=== PATIENT | female | born 1990 | race Caucasian/White ===

== ENCOUNTER → 2019-05-15 | Outpatient (CLI) | payer OTHER ==
[~2019-05-15] MED LIST: ACETAMINOPHEN W1 TA6 PO; BIRTH CONTROL; MIRENA52 MG IU; MOTRIN 800800 MG/TAB PO; OMEPRAZOLE20 M2 PO; PHENERGAN 25 TA25 MG PO; REGLAN 10MG10 MG/TAB PO
[2019-05-15 13:50] LABS: BASO % 0.6 % (0.0-2.0); EOS # 0.1 (0.0-0.7); EOS % 1.1 % (0-4.0); GRAN % 55.2 % (42.2-75.2); HEMATOCRIT 43.2 % (37.0-47.0); HEMOGLOBIN 13.8 g/dl (12.5-16.0); LYMPH # 2.5 (1.2-3.4); LYMPH % 33.9 % (20.0-51.0); MEAN CELL VOLUME 84 fl (80.0-100.0); MEAN CORPUSCULAR HEMOGLOBIN 27 pg (27.0-31.0); MEAN CORPUSCULAR HGB CONC 32 g/dl (33.0-37.0); MEAN PLATELET VOLUME 11.6 fl (7.4-10.4); MONO # 0.6 (0.1-0.6); MONO % 8.9 % (1.7-9.3); PLATELET COUNT 258 K/mm3 (130-400); RED BLOOD COUNT 5.12 M/mm3 (4.10-5.30); REDCELL DISTRIBUTION WIDTH-CV 14.2 % (11.5-14.5)
[2019-05-15 14:34] LABS: ALBUMIN 4.4 gm/dL (3.5-5.0); BILIRUBIN,TOTAL 0.7 mg/dL (0.0-1.0); CALCIUM 9.4 mg/dL (8.4-10.2); CHOLESTEROL RISK RATIO 2.4; CREATININE, serum 0.82 (0.52-1.25); POTASSIUM 3.6 mmol/L (3.4-5.0); TOTAL PROTEIN 7.7 gm/dL (6.4-8.2)
[2019-05-15 15:04] LABS: THYROID STIMULATING HORMONE 0.605 uIU/mL (0.465-4.680)
== END ==
LOC: COL.LAB 12:46
PROVIDERS: Family Medicine
DX: E11.9 Type 2 diabetes mellitus without complications (principal); M32.9 Systemic lupus erythematosus, unspecified

== ENCOUNTER → 2019-05-23 | Outpatient (CLI) | payer OTHER | LOC: COL.CARD 08:00 | DX: R00.2 Palpitations (principal) ==

== ENCOUNTER → 2019-05-29 | Outpatient (CLI) | payer OTHER | LOC: ZCOL.LAB 16:40 | DX: R10.9 Unspecified abdominal pain (principal); R14.0 Abdominal distension (gaseous) ==

== ENCOUNTER → 2019-06-12 | Outpatient (CLI) | payer OTHER | LOC: COL.LAB 15:45 | DX: R10.9 Unspecified abdominal pain (principal); R14.0 Abdominal distension (gaseous) ==

== ENCOUNTER 2020-06-15 15:18 | Emergency (ER) | payer OTHER ==
[~2020-06-15] VITALS: Ht 165.1 cm; Wt 77.3 kg
[2020-06-15 15:54] VITALS: BP 122/83; TEMP 99
[2020-06-15] MEDS ORDERED: FLEXERIL 1010 MG/TAB PO (17:49)
[2020-06-15 18:01] VITALS: PULSE 81
== END 2020-06-15 18:04 | disposition home or self-care (01) ==
LOC: COL.ER 15:18
DX: S16.1XXA Strain of muscle, fascia and tendon at neck level, initial encounter (principal); M54.5 Low back pain; J45.909 Unspecified asthma, uncomplicated; K21.9 Gastro-esophageal reflux disease without esophagitis; Z88.2 Allergy status to sulfonamides; V49.40XA Driver injured in collision with unspecified motor vehicles in traffic accident, initial encounter
CPT/HCPCS: J1885

== ENCOUNTER → 2020-09-11 | Outpatient (CLI) | payer BC ==
[~2020-09-11] MED LIST changes: +FLEXERIL 1010 MG/TAB PO
== END ==
LOC: COL.RAD 09:24
DX: K22.2 Esophageal obstruction (principal); K22.8 Other specified diseases of esophagus; R13.10 Dysphagia, unspecified; Z98.890 Other specified postprocedural states

== ENCOUNTER → 2020-12-22 | Outpatient (CLI) | payer OTHER | LOC: COL.PUL 11:30 | DX: R06.09 Other forms of dyspnea (principal) ==

== ENCOUNTER → 2020-12-31 | Outpatient (CLI) | payer OTHER | LOC: COL.RAD 12:44 | DX: R91.8 Other nonspecific abnormal finding of lung field (principal) ==

== ENCOUNTER → 2021-03-25 | Outpatient (CLI) | payer OTHER | LOC: COL.RAD 08:46 | DX: M25.571 Pain in right ankle and joints of right foot (principal) | CPT/HCPCS: J3301; Q9967 ==

== ENCOUNTER → 2021-11-22 | Outpatient (CLI) | payer OTHER | LOC: COL.RAD 07:30 | DX: J32.0 Chronic maxillary sinusitis (principal); H47.10 Unspecified papilledema; G43.009 Migraine without aura, not intractable, without status migrainosus; H53.9 Unspecified visual disturbance; R33.9 Retention of urine, unspecified | CPT/HCPCS: A9575 ==

== ENCOUNTER → 2021-11-24 | Outpatient (CLI) | payer OTHER | LOC: COL.RAD 07:21 | DX: H47.10 Unspecified papilledema (principal); R33.9 Retention of urine, unspecified; G43.009 Migraine without aura, not intractable, without status migrainosus; H53.9 Unspecified visual disturbance | CPT/HCPCS: A9575 ==

== ENCOUNTER → 2022-08-22 | Outpatient (CLI) | payer BC | LOC: COL.RAD 14:00 | DX: K44.9 Diaphragmatic hernia without obstruction or gangrene (principal) ==